=== PATIENT | male | born 1930 | race Caucasian/White ===

== ENCOUNTER 2016-12-30 06:53 | Observation (INO) | payer OTHER ==
[~2016-12-30] VITALS: Ht 172.7 cm; Wt 72.6 kg
[2016-12-30] MEDS ORDERED: SODIUM CHLORIDE 0.9% 1,000 ML IV ONE (07:27)
[2016-12-30] MEDS ORDERED: methylPREDNISolone SOD SUCC 125 MG/2 ML VL IV ONE (07:30)
[2016-12-30] MEDS ORDERED: ALBUTEROL SULF 2.5 MG/0.5ML(0.5%) NEB SOLN NEB ONE (07:30)
[2016-12-30] MEDS ORDERED: IPRATROPIUM BROM 0.5 MG/2.5ML INH SOL NEB ONE (07:30)
[2016-12-30 07:47] LABS: Basophils # (auto) 0 uL; Basophils % (auto) 0.4 % (0.0-2.0); Eosinophils # (auto) 0.3 uL; Eosinophils % (auto) 3.9 % (0.0-7.0); Hemoglobin 13.5 g/dL (13.5-17.5); Lymphocytes # (auto) 1.7 uL; Lymphocytes % (auto) 21.2 % (10.0-50.0); Mean Corpuscular Hemoglobin 30.4 pg (28.0-32.0); Mean Corpuscular Hgb Conc. 32.9 g/dL (32.0-36.0); Mean Corpuscular Volume 92.3 fL (80.0-100.0); Mean Platelet Volume 8.7 fL (7.4-10.4); Monocytes % (auto) 11.8 % (0.0-12.0); Neutrophils # (auto) 5.1 uL; Neutrophils % (auto) 62.7 % (37.0-80.0); Platelet Count (auto) 219 10^3/uL (140-450); Red Cell Distribution Width 16.1 % (11.6-16.0); White Blood Cell 8.1 10^3/uL (4.4-10.8)
[2016-12-30 08:22] LABS: Albumin 3.1 g/dL (3.4-5.0); BUN/Creatinine Ratio 24.5; Bilirubin, Total 0.4 mg/dL (0.2-1.0); Calcium 7.5 mg/dL (8.5-10.1); Magnesium 2.1 mg/dL (1.6-2.6); Potassium 3.6 mmol/L (3.5-5.1); Total Protein 6.1 g/dL (6.4-8.2)
[2016-12-30] MEDS ORDERED: FURO20TA PO (12:26)
[2016-12-30] MEDS ORDERED: HYDR-2652 PO (12:26)
[2016-12-30] MEDS ORDERED: FAMO40TA49 PO (12:26)
[2016-12-30] MEDS ORDERED: ASPI-498 OR (12:26)
[2016-12-30] MEDS ORDERED: IPRAAER6 IN (12:27)
[2016-12-30] MEDS ORDERED: IPRA0.03 (12:27)
[2016-12-30] MEDS ORDERED: PRED1PAK9 PO (12:27)
[2016-12-30] MEDS ORDERED: OMEP20CA5 PO (12:31)
[2016-12-30] MEDS ORDERED: LOR05T PO (12:31)
[2016-12-30] MEDS ORDERED: POTA20TA53 PO (12:31)
[2016-12-30] MEDS ORDERED: TAMS0.4C36 PO (12:31)
[2016-12-30] MEDS ORDERED: NOR5T PO (12:31)
[2016-12-30] MEDS ORDERED: METO-169 PO (12:31)
[2016-12-30 16:02] LABS: Urine Bilirubin Negative (Negative); Urine Blood Negative /uL (Negative); Urine Color Yellow (Yellow); Urine Glucose Normal (Normal); Urine Ketone Negative (Negative); Urine Mucus FEW (None Seen); Urine Nitrite Negative (Negative); Urine RBC <1 /hpf (0 - 3); Urine Urobilinogen Normal (Negative); Urine pH 5.5 (5.0-8.0)
[2016-12-30 17:52] VITALS: BP 130/68
== END 2016-12-30 18:10 | disposition short-term general hospital (02) | DRG 191 ==
LOC: EDUNIT# 06:53 → EDBD 06:53 → ER 06:53 → OVERFLOW 07:29 → ER 18:10
PROVIDERS: ADMIT Emergency Medicine; ATTEND Emergency Medicine
DX: J44.1 Chronic obstructive pulmonary disease with (acute) exacerbation (principal); E44.1 Mild protein-calorie malnutrition; J98.11 Atelectasis; E83.51 Hypocalcemia; E03.9 Hypothyroidism, unspecified; Z99.81 Dependence on supplemental oxygen; I25.10 Atherosclerotic heart disease of native coronary artery without angina pectoris; I51.7 Cardiomegaly
CPT/HCPCS: 36415; 71020; 80053; 81001; 83735; 84443; 85025; 93005; 94640; 96361; 96374; 99285; G0378; J2930

== ENCOUNTER 2017-07-08 11:24 | Emergency (ER) | payer OTHER ==
[~2017-07-08] VITALS: Ht 170.2 cm; Wt 65.8 kg
[~2017-07-08 11:24] MED LIST: ASPI-498 OR; FAMO40TA49 PO; FURO20TA PO; HYDR-4683 PO; HYDR50TA15 PO; IPRA0.03; IPRAAER6 IN; LORA-654 PO; METO-169 PO; OMEP20CA74 PO; POTA20TA53 PO; PRED1PAK9 PO; TAMS0.4C36 PO
[2017-07-08] MEDS ORDERED: KETOROLAC TROMETH 60MG/2ML VIAL IM ONE (11:45)
[2017-07-08] MEDS ORDERED: cefTRIAXone SOD 1,000 MG VL IM ONE (11:45)
[2017-07-08] MEDS ORDERED: LIDOCAINE 1% HCL (LOCAL ANESTH.) INJ 20ML MDV IJ ONE (11:45)
[2017-07-08] MEDS ORDERED: TETANUS-DIPTH-ACEL PERTUSSIS 0.5ML SYRG IM ONE (12:00)
[2017-07-08] MEDS ORDERED: IPRATROPIUM BROM 0.5 MG/2.5ML INH SOL NEB ONE (14:30)
[2017-07-08] MEDS ORDERED: ALBUTEROL SULF 2.5 MG/0.5ML(0.5%) NEB SOLN NEB ONE (14:30)
[2017-07-08 15:08] VITALS: BP 124/82
== END 2017-07-08 15:03 | disposition home or self-care (01) ==
LOC: ER 11:24 → EDBD 11:24 → ER 15:03
DX: S61.411A Laceration without foreign body of right hand, initial encounter (principal); S51.011A Laceration without foreign body of right elbow, initial encounter; J44.1 Chronic obstructive pulmonary disease with (acute) exacerbation; M19.90 Unspecified osteoarthritis, unspecified site; I11.0 Hypertensive heart disease with heart failure; I50.9 Heart failure, unspecified; I25.10 Atherosclerotic heart disease of native coronary artery without angina pectoris; Z79.82 Long term (current) use of aspirin; Z79.899 Other long term (current) drug therapy; W01.0XXA Fall on same level from slipping, tripping and stumbling without subsequent striking against object, initial encounter; Y93.89 Activity, other specified; Y92.89 Other specified places as the place of occurrence of the external cause; Y99.8 Other external cause status
CPT/HCPCS: 12006; 73080; 73090; 73110; 73130; 90471; 90715; 94640; 96372; 99284; J0696; J1885; J2001

== ENCOUNTER 2017-07-10 13:49 | Emergency (ER) | payer OTHER ==
[~2017-07-10] VITALS: Ht 172.7 cm; Wt 61.2 kg
[2017-07-10 13:58] VITALS: BP 106/45
== END 2017-07-10 14:57 | disposition home or self-care (01) ==
LOC: ER 13:49
DX: S51.811D Laceration without foreign body of right forearm, subsequent encounter (principal); X58.XXXD Exposure to other specified factors, subsequent encounter

== ENCOUNTER 2017-08-09 04:54 | Emergency (ER) | payer OTHER ==
[~2017-08-09] VITALS: Ht 160 cm; Wt 63.5 kg
[2017-08-09 05:16] LABS: Basophils # (auto) 0.1 uL; Basophils % (auto) 1.2 % (0.0-2.0); Eosinophils # (auto) 0.7 uL; Eosinophils % (auto) 9.5 % (0.0-7.0); Hematocrit 38.7 % (41.0-53.0); Hemoglobin 12.4 g/dL (13.5-17.5); Lymphocytes # (auto) 1.8 uL; Lymphocytes % (auto) 25.4 % (10.0-50.0); Mean Corpuscular Hemoglobin 28.8 pg (28.0-32.0); Mean Corpuscular Volume 89.8 fL (80.0-100.0); Mean Platelet Volume 7.8 fL (6.9-10.8); Monocytes # (auto) 1.2 uL; Monocytes % (auto) 16.8 % (0.0-12.0); Neutrophils # (auto) 3.3 uL; Neutrophils % (auto) 47.1 % (37.0-80.0); Nucleated Red Blood Cells % 0.1 %; Platelet Count (auto) 211 10^3/uL (140-450); Red Cell Distribution Width 14.8 % (11.8-14.3)
[2017-08-09 05:40] LABS: Albumin 2.8 g/dL (3.4-5.0); Alkaline Phosphatase 81 U/L (45-117); Anion Gap 8 (5-15); Aspartate Aminotransferase 17 U/L (15-37); BUN/Creatinine Ratio 17.2; Bilirubin, Total 0.4 mg/dL (0.2-1.0); Blood Urea Nitrogen 20 mg/dL (7-18); Calcium 8.1 mg/dL (8.5-10.1); Carbon Dioxide 30 mmol/L (21-32); Chloride 107 mmol/L (98-107); GFR African American 76 mL/min; GFR Non-African American 63 mL/min; Glucose 86 mg/dL (74-106); Magnesium 2.3 mg/dL (1.6-2.6); Potassium 4.2 mmol/L (3.5-5.1); Sodium 145 mmol/L (136-145); Total Protein 6.6 g/dL (6.4-8.2)
[2017-08-09 05:56] LABS: B-Type Natriuretic Peptide 385.6 pg/mL (0-100)
[2017-08-09 05:59] LABS: Temperature: 23.3 C (20.0-25.0)
[2017-08-09] MEDS ORDERED: FUROSEMIDE 40 MG/4 ML VIAL IV ONE (07:15)
[2017-08-09] MEDS ORDERED: ASPirin 81 mg TAB PO ONE (07:15)
[2017-08-09] MEDS ORDERED: PIPERACILLIN-TAZOB 3.375GM 50 ML IV ONE (07:30)
[2017-08-09 09:01] LABS: Urine RBC None Seen /hpf (0 - 3)
[2017-08-09 09:28] LABS: Urine Bilirubin Negative (Negative); Urine Blood Negative /uL (Negative); Urine Color Yellow (Yellow); Urine Glucose Normal (Normal); Urine Ketone Negative (Negative); Urine Nitrite Negative (Negative); Urine Squamous Epithelial Cell FEW /hpf (<5); Urine Urobilinogen Normal (Negative); Urine pH 6.5 (5.0-8.0)
[2017-08-09] MEDS ORDERED: methylPREDNISolone SOD SUCC 125 MG/2 ML VL IV ONE (10:45)
[2017-08-09] MEDS ORDERED: ALBUTEROL SULF 2.5 MG/0.5ML(0.5%) NEB SOLN NEB ONE (10:45)
[2017-08-09 12:15] VITALS: BP 116/65
== END 2017-08-09 12:30 | disposition short-term general hospital (02) ==
LOC: EDBD 04:54 → ER 05:02
DX: I11.0 Hypertensive heart disease with heart failure (principal); I50.9 Heart failure, unspecified; L03.116 Cellulitis of left lower limb; L03.115 Cellulitis of right lower limb; J44.9 Chronic obstructive pulmonary disease, unspecified; I25.10 Atherosclerotic heart disease of native coronary artery without angina pectoris; M19.90 Unspecified osteoarthritis, unspecified site; R53.1 Weakness; Z99.81 Dependence on supplemental oxygen
CPT/HCPCS: 36415; 71010; 80053; 81001; 83735; 83880; 84484; 85025; 85379; 93005; 93970; 94640; 96365; 96366; 96375; 99285; J1940; J2543; J2930; J7030

== ENCOUNTER 2017-12-21 03:21 | Emergency (ER) | payer OTHER ==
[~2017-12-21] VITALS: Ht 170.2 cm; Wt 63.5 kg
[2017-12-21] MEDS ORDERED: cloNIDine HCL 0.1 MG TAB PO ONE (04:15)
[2017-12-21 04:38] LABS: Basophils # (auto) 0.1 uL; Basophils % (auto) 1.5 % (0.0-2.0); Eosinophils # (auto) 0.6 uL; Eosinophils % (auto) 8.6 % (0.0-7.0); Hematocrit 39.9 % (41.0-53.0); Hemoglobin 13.2 g/dL (13.5-17.5); Lymphocytes # (auto) 1.2 uL; Lymphocytes % (auto) 16.3 % (10.0-50.0); Mean Corpuscular Hemoglobin 29.3 pg (28.0-32.0); Mean Corpuscular Volume 88.6 fL (80.0-100.0); Monocytes # (auto) 0.9 uL; Monocytes % (auto) 12.5 % (0.0-12.0); Neutrophils # (auto) 4.4 uL; Neutrophils % (auto) 61.1 % (37.0-80.0); Platelet Count (auto) 259 10^3/uL (140-450); Red Cell Distribution Width 14.8 % (11.8-14.3); White Blood Cell 7.2 10^3/uL (4.4-10.8)
[2017-12-21 04:58] LABS: Alanine Aminotransferase 13 U/L (16-61); Albumin 3.1 g/dL (3.4-5.0); Alkaline Phosphatase 97 U/L (45-117); Anion Gap 7 (5-15); Aspartate Aminotransferase 20 U/L (15-37); BUN/Creatinine Ratio 19.8; Bilirubin, Total 0.4 mg/dL (0.2-1.0); Blood Urea Nitrogen 23 mg/dL (7-18); Carbon Dioxide 28 mmol/L (21-32); Chloride 109 mmol/L (98-107); GFR African American 76 mL/min; GFR Non-African American 63 mL/min; Glucose 88 mg/dL (74-106); Magnesium 2.2 mg/dL (1.6-2.6); Potassium 4.1 mmol/L (3.5-5.1); Sodium 144 mmol/L (136-145); Total Protein 7.4 g/dL (6.4-8.2)
[2017-12-21] MEDS ORDERED: ALBUTEROL SULF 2.5 MG/0.5ML(0.5%) NEB SOLN NEB ONE (09:30)
[2017-12-21] MEDS ORDERED: methylPREDNISolone SOD SUCC 125 MG/2 ML VL IV ONE (09:30)
[2017-12-21] MEDS ORDERED: IPRATROPIUM BROM 0.5 MG/2.5ML INH SOL NEB ONE (09:30)
[2017-12-21 10:26] VITALS: BP 129/74
== END 2017-12-21 10:34 | disposition home or self-care (01) ==
LOC: ER 03:21 → EDBD 03:21 → ER 10:34
DX: J44.1 Chronic obstructive pulmonary disease with (acute) exacerbation (principal); M19.90 Unspecified osteoarthritis, unspecified site; I25.10 Atherosclerotic heart disease of native coronary artery without angina pectoris; I10 Essential (primary) hypertension; R53.1 Weakness; R07.9 Chest pain, unspecified; R53.83 Other fatigue
CPT/HCPCS: 36415; 71045; 80053; 83735; 84484; 85025; 93005; 94640; 96374; 99291; J2930

== ENCOUNTER 2018-03-11 17:37 | Emergency (ER) | payer OTHER ==
[~2018-03-11] VITALS: Ht 170.2 cm; Wt 59.0 kg
[2018-03-11] MEDS ORDERED: methylPREDNISolone SOD SUCC 40 MG/ML VL IV ONE (18:30)
[2018-03-11 18:41] LABS: Basophils # (auto) 0.1 uL; Basophils % (auto) 0.9 % (0.0-2.0); Eosinophils # (auto) 0.4 uL; Eosinophils % (auto) 4.5 % (0.0-7.0); Hematocrit 37.5 % (41.0-53.0); Hemoglobin 12.1 g/dL (13.5-17.5); Lymphocytes # (auto) 1.5 uL; Lymphocytes % (auto) 15.5 % (10.0-50.0); Mean Corpuscular Hemoglobin 29.2 pg (28.0-32.0); Mean Corpuscular Hgb Conc. 32.3 g/dL (32.0-36.0); Mean Corpuscular Volume 90.2 fL (80.0-100.0); Monocytes # (auto) 1.1 uL; Monocytes % (auto) 11.3 % (0.0-12.0); Neutrophils # (auto) 6.8 uL; Neutrophils % (auto) 67.8 % (37.0-80.0); Nucleated Red Blood Cells % 0.1 %; Platelet Count (auto) 285 10^3/uL (140-450); Red Blood Cells 4.15 10^6/uL (4.5-5.90); Red Cell Distribution Width 15.7 % (11.8-14.3)
[2018-03-11] MEDS ORDERED: ALBUTEROL SULF 2.5 MG/0.5ML(0.5%) NEB SOLN HHN ONE (18:45)
[2018-03-11] MEDS ORDERED: IPRATROPIUM BROM 0.5 MG/2.5ML INH SOL HHN ONE (18:45)
[2018-03-11 18:51] LABS: Albumin 2.9 g/dL (3.4-5.0); Anion Gap 9 (5-15); Aspartate Aminotransferase 15 U/L (15-37); BUN/Creatinine Ratio 21.4; Blood Urea Nitrogen 24 mg/dL (7-18); Calcium 7.3 mg/dL (8.5-10.1); Carbon Dioxide 27 mmol/L (21-32); Chloride 104 mmol/L (98-107); GFR African American 79 mL/min; GFR Non-African American 66 mL/min; Glucose 96 mg/dL (74-106); Magnesium 1.9 mg/dL (1.6-2.6); Potassium 4.2 mmol/L (3.5-5.1); Sodium 140 mmol/L (136-145)
[2018-03-11 18:56] LABS: Alanine Aminotransferase 13 U/L (16-61); Alkaline Phosphatase 86 U/L (45-117); Bilirubin, Total 0.3 mg/dL (0.2-1.0)
[2018-03-11] MEDS ORDERED: LORazepam 2MG/ML-1ML VIAL IV ONE (20:45)
[2018-03-11 21:29] VITALS: BP 111/59
== END 2018-03-11 22:08 | disposition short-term general hospital (02) ==
LOC: EDBD 17:37 → ER 17:37
DX: J44.1 Chronic obstructive pulmonary disease with (acute) exacerbation (principal); I11.0 Hypertensive heart disease with heart failure; I50.9 Heart failure, unspecified; Z86.73 Personal history of transient ischemic attack (TIA), and cerebral infarction without residual deficits; I25.10 Atherosclerotic heart disease of native coronary artery without angina pectoris; Z87.891 Personal history of nicotine dependence
CPT/HCPCS: 36415; 36600; 71045; 80053; 82805; 83605; 83735; 83880; 84484; 85025; 93005; 96374; 96375; 99285; J2060; J2920; 94761

== ENCOUNTER 2018-07-09 15:03 | Observation (INO) | payer OTHER ==
[~2018-07-09] VITALS: Ht 170.2 cm; Wt 61.2 kg
[2018-07-09 16:06] LABS: Basophils # (auto) 0 uL; Basophils % (auto) 0.1 % (0.0-2.0); Eosinophils # (auto) 0.1 uL; Eosinophils % (auto) 0.8 % (0.0-7.0); Hematocrit 38.6 % (41.0-53.0); Hemoglobin 12.6 g/dL (13.5-17.5); Lymphocytes # (auto) 1.2 uL; Lymphocytes % (auto) 11.9 % (10.0-50.0); Mean Corpuscular Hemoglobin 29.2 pg (28.0-32.0); Mean Corpuscular Hgb Conc. 32.6 g/dL (32.0-36.0); Mean Corpuscular Volume 89.6 fL (80.0-100.0); Monocytes % (auto) 9.7 % (0.0-12.0); Neutrophils # (auto) 7.8 uL; Neutrophils % (auto) 77.5 % (37.0-80.0); Platelet Count (auto) 240 10^3/uL (140-450); Red Blood Cells 4.31 10^6/uL (4.5-5.90); Red Cell Distribution Width 16.2 % (11.8-14.3)
[2018-07-09 16:22] LABS: Albumin 2.5 g/dL (3.4-5.0); Anion Gap 8 (5-15); Blood Urea Nitrogen 41 mg/dL (7-18); Calcium 7.1 mg/dL (8.5-10.1); Carbon Dioxide 28 mmol/L (21-32); Chloride 103 mmol/L (98-107); Glucose 100 mg/dL (74-106); Potassium 4.3 mmol/L (3.5-5.1); Sodium 139 mmol/L (136-145)
[2018-07-09 16:28] LABS: Alanine Aminotransferase 33 U/L (16-61); Alkaline Phosphatase 83 U/L (45-117); Aspartate Aminotransferase 8 U/L (15-37); Bilirubin, Total 0.4 mg/dL (0.2-1.0); GFR African American 56 mL/min; GFR Non-African American 46 mL/min; Total Protein 5.9 g/dL (6.4-8.2)
[2018-07-09 17:51] LABS: INR 1.06 (0.9-1.15); Partial Thromboplastin Time 27.2 sec (23.78-33.04); Prothrombin Time 11.3 sec (9.27-12.13)
[2018-07-09 17:51] LABS: Urine Bacteria NONE SEEN /hpf (None Seen); Urine Blood Negative /uL (Negative); Urine Hyaline Cast FEW /lpf (0 - 2); Urine Mucus FEW (None Seen); Urine Specific Gravity 1.014 (1.001-1.035); Urine WBC 1 /hpf (0 - 3)
[2018-07-09] MEDS ORDERED: IPRATROPIUM BROM 0.5 MG/2.5ML INH SOL HHN ONE (19:45)
[2018-07-09] MEDS ORDERED: methylPREDNISolone SOD SUCC 125 MG/2 ML VL IV ONE (19:45)
[2018-07-09] MEDS ORDERED: ALBUTEROL SULF 2.5 MG/0.5ML(0.5%) NEB SOLN HHN ONE (19:45)
[2018-07-09] MEDS ORDERED: cefTRIAXone 1GM/50ML D5W 50 ML IV ONE (19:45)
[2018-07-09 23:00] VITALS: BP 115/78
== END 2018-07-09 23:28 | disposition short-term general hospital (02) | DRG 190 ==
LOC: ER 15:03 → EDBD 15:03 → OVERFLOW 15:04 → ER 23:28
PROVIDERS: ADMIT Family Medicine; ATTEND Family Medicine
DX: J44.1 Chronic obstructive pulmonary disease with (acute) exacerbation (principal); J18.9 Pneumonia, unspecified organism; I50.43 Acute on chronic combined systolic (congestive) and diastolic (congestive) heart failure; R06.02 Shortness of breath; I11.0 Hypertensive heart disease with heart failure; I25.10 Atherosclerotic heart disease of native coronary artery without angina pectoris; D64.9 Anemia, unspecified; R00.1 Bradycardia, unspecified; Z86.73 Personal history of transient ischemic attack (TIA), and cerebral infarction without residual deficits
CPT/HCPCS: 36415; 71045; 80053; 81001; 83605; 83735; 83880; 84484; 85025; 85610; 85730; 87040; 87077; 87186; 93005; 94640; 96365; 96366; 96375; 99285; G0378; J0696; J2930; J7611; J7644